=== PATIENT | female | born 2000 | race American Indian/Alaskan Native ===

== ENCOUNTER 2020-06-29 10:32 | Emergency (ER) | payer SELFPAY ==
[2020-06-29 11:09] VITALS: BP 113/65
--- NOTE | 2020-06-29 12:31 | Emergency Department Report ---
ED Extremity Problem HPI - General Chief complaint: Extremity Injury, Lower Stated complaint: PAIN Time Seen by Provider: 06/29/20 12:27 Source: patient Mode of arrival: Wheelchair Limitations: No Limitations - History of Present Illness Initial comments: Patient is a 20-year-old female presents emergency room with complaints of left foot pain and swelling that began 2 days ago. She denies any fall or injury. She states that she recently started back to work. She has been ambulating at home but today is not ambulating secondary to pain. She denies any numbness or weakness. She denies ever injuring the past. No past medical history. No allergies to medications. Last menstrual cycle 06/12/2020. Severity scale (0 -10): 9 - Related Data Previous Rx's Medication Instructions Recorded Last Taken Type Ibuprofen [Motrin 600 MG tab] 600 mg PO Q8H PRN #14 tablet 06/29/20 Unknown Rx Allergies Allergy/AdvReac Type Severity Reaction Status Date / Time No Known Allergies Allergy Unverified 06/29/20 11:06 ED Review of Systems ROS: Stated complaint: PAIN Other details as noted in HPI Comment: All other systems reviewed and negative ED Past Medical Hx - Past Medical History Previous Medical History?: No - Surgical History Past Surgical History?: No - Medications Home Medications: Home Medications Medication Instructions Recorded Confirmed Last Taken Type Ibuprofen [Motrin 600 MG tab] 600 mg PO Q8H PRN #14 tablet 06/29/20 Unknown Rx ED Physical Exam - General Limitations: No Limitations General appearance: alert, in no apparent distress - Head Head exam: Present: atraumatic, normocephalic - Eye Eye exam: Present: normal appearance - ENT ENT exam: Present: mucous membranes moist - Respiratory Respiratory exam: Absent: respiratory distress, accessory muscle use - Extremities Exam Extremities exam: Present: other (ttp and mild edema present to the left dorsal foot inferior to the ankle, FROM of the LLE, no deformity, no skin changes, no erythema, no increased warmth, no calf ttp, no swelling up the leg, neurovascularly intact) - Neurological Exam Neurological exam: Present: alert, oriented X3 - Psychiatric Psychiatric exam: Present: normal affect, normal mood - Skin Skin exam: Present: warm, dry, intact ED Course Vital Signs 06/29/20 11:06 Temperature 98.8 F Pulse Rate 75 Respiratory 16 Rate Blood Pressure 113/65 [Right] O2 Sat by Pulse 100 Oximetry ED Medical Decision Making - Radiology Data Radiology results: report reviewed Ordering Physician: RODRI CONTRERAS Date of Service: 06/29/20 Procedure(s): XR foot 3+V LT Accession Number(s): [id number] cc: RODRI CONTRERAS Fluoro Time In Minutes: LEFT FOOT 3 VIEWS INDICATION / CLINICAL INFORMATION: left foot pain and swelling COMPARISON: None available. FINDINGS: BONES / JOINT(S): No acute fracture or subluxation. No significant arthritis. SOFT TISSUES: No significant abnormality. ADDITIONAL FINDINGS: None. Signer Name: Armin Pulido MD Signed: 06/29/2020 1:32 PM Workstation Name: [id number] Transcribed By: SS Dictated By: Armin Pulido MD Electronically Authenticated By: Armin Pulido MD Signed Date/Time: 06/29/20 3588 - Medical Decision Making Patient is a 20-year-old female presents emergency room with complaints of left foot pain and swelling that began 2 days ago. She denies any fall or injury. She states that she recently started back to work. She has been ambulating at home but today is not ambulating secondary to pain. She denies any numbness or weakness. She denies ever injuring the past. No past medical history. No allergies to medications. Last menstrual cycle 06/12/2020. vitals are normal. on exam:ttp and mild edema present to the left dorsal foot inferior to the ankle, FROM of the LLE, no deformity, no skin changes, no erythema, no increased warmth, no calf ttp, no swelling up the leg, neurovascularly intact. XR left foot:BONES / JOINT(S): No acute fracture or subluxation. No significant arthritis. SOFT TISSUES: No significant abnormality. ADDITIONAL FINDINGS: None. Discussed all results with patient and answered questions. Patient placed in Jagdish wrap and given crutches by nursing remain neurovascularly intact. She has no clinical signs of gout, septic joint, DVT. Symptoms could be related to beginning a new job and standing on her feet all day plus the shoes she wears. Advised patient to buy orthotics. Patient given prescription for ibuprofen. Advised patient Please use medication as prescribed as needed. Please do not wear Jagdish bandage too tightly and do not wear at night while sleeping. May use ice for 15 minutes at a time, rest, elevation of the leg. Follow-up with orthopedic doctor for reexamination. Return to emergency room for any new or worsening symptoms. - Differential Diagnosis Strain, sprain, fracture, dislocation, contusion, tendinitis, athritis Critical care attestation.: If time is entered above; I have spent that time in minutes in the direct care of this critically ill patient, excluding procedure time. ED Disposition Clinical Impression: Acute pain of left foot Disposition: TO HOME OR SELFCARE Is pt being admited?: No Does the pt Need Aspirin: No Condition: Stable Instructions: Foot Pain Additional Instructions: Please use medication as prescribed as needed. Please do not wear Jagdish bandage too tightly and do not wear at night while sleeping. May use ice for 15 minutes at a time, rest, elevation of the leg. Follow-up with orthopedic doctor for reexamination. Return to emergency room for any new or worsening symptoms. Prescriptions: Ibuprofen [Motrin 600 MG tab] 600 mg PO Q8H PRN #14 tablet PRN Reason: Pain Referrals: PRIMARY CAREMD [Primary Care Provider] - 2-3 Days GISELA SANTOS MD [Staff Physician] - 2-3 Days [facility] [Provider Group] - 2-3 Days Forms: Work/School Release Form(ED) Time of Disposition: 14:23 Print Language: MALIAN
--- NOTE | 2020-06-29 13:36 | XRay Report ---
LEFT FOOT 3 VIEWS INDICATION / CLINICAL INFORMATION: left foot pain and swelling COMPARISON: None available. FINDINGS: BONES / JOINT(S): No acute fracture or subluxation. No significant arthritis. SOFT TISSUES: No significant abnormality. ADDITIONAL FINDINGS: None. Signer Name: Armin Pulido MD Signed: 06/29/2020 1:32 PM Workstation Name: [id number]
== END 2020-06-29 14:53 | disposition home or self-care (01) ==
LOC: ED 10:32
DX: M79.672 Pain in left foot (principal); Z79.899 Other long term (current) drug therapy

== ENCOUNTER 2020-11-16 11:07 | Observation (INO) | payer OTHER ==
[2020-11-16] MEDS ORDERED: SODIUM CHLORIDE 0.9% 1000 ML 1,000 ML IV ONE (12:14)
[2020-11-16] MEDS ORDERED: HYDROcodone/ACETAMINOPHEN 5-325 MG TAB PO ONE (12:15)
--- NOTE | 2020-11-16 12:18 | Emergency Department Report ---
ED Abdominal Pain HPI - General Chief Complaint: Pain General Stated Complaint: RIGHT SIDE PAIN UNDER RIBS Time Seen by Provider: 11/16/20 12:14 Source: patient Mode of arrival: Ambulatory Limitations: No Limitations - History of Present Illness Initial Comments: 20-year-old female with no significant past history presents to the ER today with complaints of right-sided abdominal/right-sided flank, right lower chest pain. Patient states that about 1 week ago she started with diffuse abdominal cramping but more so in lower abdomen. She states that she thought that the pain was related to her menstrual cycle about 2, on, but 2 days ago with pain localized in the right side of her abdomen right flank and right lower chest area. She states that it has been constant and getting worse. She states it radiates into her back, seems to be worse when she stands or sits and when she takes a deep breath. She denies any cough or URI symptoms. She denies any nausea or vomiting. She denies any bowel changes. She denies any UTI symptoms, abnormal vaginal discharge. She states that she is still currently on her menstrual cycle which is unusual because typically last 4 days. She is not on any control. He does have a history of tobacco use but otherwise denies any other significant past history and she denies any surgical history. MD Complaint: abdominal pain, flank pain -: week(s) (1) - Related Data Home Medications Medication Instructions Recorded Confirmed Last Taken No Known Home Medications [No 11/16/20 11/16/20 Unknown Reported Home Medications] Allergies Allergy/AdvReac Type Severity Reaction Status Date / Time No Known Allergies Allergy Verified 11/16/20 11:37 ED Review of Systems ROS: Stated complaint: RIGHT SIDE PAIN UNDER RIBS Other details as noted in HPI Comment: All other systems reviewed and negative Constitutional: chills. denies: diaphoresis, fever, malaise, weakness ENT: denies: ear pain, throat pain, dental pain, hearing loss, epistaxis, congestion Respiratory: other (Pain with deep breath). denies: cough, shortness of breath, wheezing Cardiovascular: chest pain (Right lower lateral/lower anterior chest area). denies: palpitations, dyspnea on exertion, orthopnea, edema, syncope, paroxysmal nocturnal dyspnea Endocrine: no symptoms reported Gastrointestinal: abdominal pain. denies: nausea, vomiting, diarrhea, constipation, hematemesis, melena, hematochezia Genitourinary: abnormal menses (Longer than normal). denies: urgency, dysuria, frequency, hematuria, discharge, dyspareunia Musculoskeletal: back pain. denies: joint swelling, arthralgia, myalgia Skin: denies: rash, lesions Neurological: denies: headache, weakness, numbness, paresthesias, confusion, abnormal gait, vertigo Psychiatric: denies: anxiety, depression, auditory hallucinations, visual hallucinations, homicidal thoughts, suicidal thoughts Hematological/Lymphatic: denies: easy bleeding, easy bruising, swollen glands ED Past Medical Hx - Past Medical History Previous Medical History?: No - Surgical History Past Surgical History?: No - Social History Smoking Status: Never Smoker Substance Use Type: Marijuana - Medications Home Medications: Home Medications Medication Instructions Recorded Confirmed Last Taken Type No Known Home Medications [No 11/16/20 11/16/20 Unknown History Reported Home Medications] ED Physical Exam - General Limitations: No Limitations General appearance: alert, in no apparent distress, cachectic - Head Head exam: Present: atraumatic, normocephalic, normal inspection - Eye Eye exam: Present: normal appearance, PERRL, EOMI Pupils: Present: normal accommodation - ENT ENT exam: Present: normal exam, mucous membranes moist - Neck Neck exam: Present: normal inspection, full ROM. Absent: meningismus - Respiratory Respiratory exam: Present: normal lung sounds bilaterally. Absent: respiratory distress, wheezes, chest wall tenderness - Cardiovascular Cardiovascular Exam: Present: regular rate, normal rhythm, normal heart sounds - GI/Abdominal GI/Abdominal exam: Present: soft, tenderness (Right upper quadrant, right lower quadrant and suprapubic tenderness with some mild guarding but no rebound, rigidity or abdominal distention noted) - External exam: Present: normal external exam Speculum exam: Present: vaginal bleeding (small amt of blood in vag vault ). Absent: erythema, vaginal discharge, cervical discharge, foreign body Bi-manual exam: Absent: cervical motion tendernes, adnexal tenderness, adnexal mass - Extremities Exam Extremities exam: Present: normal inspection - Back Exam Back exam: Present: normal inspection, full ROM, CVA tenderness (R) - Neurological Exam Neurological exam: Present: alert, oriented X3, CN II-XII intact, normal gait - Psychiatric Psychiatric exam: Present: normal affect, normal mood - Skin Skin exam: Present: intact ED Course Vital Signs 11/16/20 11/16/20 11:33 17:27 Temperature 101.2 F H 99.2 F Pulse Rate 92 H 88 Respiratory 20 20 Rate Blood Pressure 115/65 Blood Pressure 118/64 [Left] O2 Sat by Pulse 100 100 Oximetry ED Medical Decision Making - Lab Data Result diagrams: 11/16/20 12:22 11/16/20 12:22 - Radiology Data Radiology results: report reviewed Patient: ISHA JUSTIN MR#: [id number] : 2000 Acct:[id number] Age/Sex: 20 / F ADM Date: 11/16/20 Loc: ED Attending Dr: Ordering Physician: MONY RIOS Date of Service: 11/16/20 Procedure(s): XR chest routine 2V Accession Number(s): [id number] cc: MONY RIOS Fluoro Time In Minutes: CHEST 2 VIEWS INDICATION / CLINICAL INFORMATION: right lower chest pain/fever. COMPARISON: None available. FINDINGS: SUPPORT DEVICES: None. HEART / MEDIASTINUM: No significant abnormality. LUNGS / PLEURA: No significant pulmonary or pleural abnormality. No pneumothorax. ADDITIONAL FINDINGS: No significant additional findings. IMPRESSION: 1. No acute findings. Signer Name: Armin Pulido MD Signed: 11/16/2020 1:37 PM Workstation Name: [id number] Transcribed By: Dictated By: Armin Pulido MD Electronically Authenticated By: Armin Pulido MD Signed Date/Time: 11/16/201336 DD/ 36 TD/TT: Patient: ISHA JUSTIN MR#: [id number] : 2000 Acct:[id number] Age/Sex: 20 / F ADM Date: 11/16/20 Loc: ED Attending Dr: Ordering Physician: MONY RIOS Date of Service: 11/16/20 Procedure(s): CT abdomen pelvis w con Accession Number(s): [id number] cc: MONY RIOS CT ABDOMEN AND PELVIS WITH CONTRAST HISTORY: Right-sided abdominal pain/flank pain COMPARISON: None. TECHNIQUE: Axial CT images were obtained through the abdomen and pelvis after 100 cc of IV contrast. Sagittal and coronal reformatted images. All CT scans at this location are performed using CT dose reduction for ALARA by means of automated exposure control. FINDINGS: CT ABDOMEN: Lung Bases: Clear. Liver: No significant abnormality. Biliary: No significant abnormality. Spleen: No significant abnormality. Unenlarged. Pancreas: No significant abnormality. Adrenals: No significant abnormality. Kidneys: No significant abnormality. Lymphatics: No lymphadenopathy. Vasculature: No significant abnormality. Bowel/Peritoneum: No evidence for bowel obstruction or focal inflammation. Trace perihepatic ascites is identified of uncertain etiology. No free air or fluid collection. The appendix is not confidently identified secondary to lack of oral contrast and mesenteric fat. No obvious inflammatory changes in the right lower quadrant. CT PELVIS: : No significant abnormality. Osseous Structures: No significant abnormality. Additional Findings: None IMPRESSION: Trace perihepatic ascites of uncertain etiology. Nonvisualization of the appendix although no secondary findings of acute appendicitis are appreciated. Otherwise unremarkable CT of the abdomen and pelvis. Signer Name: Mandeep He Jr, MD Signed: 11/16/2020 4:22 PM Workstation Name: [id number] Transcribed By: TTR Dictated By: MANDEEP HE JR, MD Electronically Authenticated By: MANDEEP HE JR, MD Signed Date/Time: 11/16/201621 DD/ 161 TD/TT: - Medical Decision Making 1729: Patient states that her pain was better after initial pain medicines given but she states coming back. Repeat abdominal exam shows tenderness to palpation in the right lower quadrant as well as mildly in the right upper quadrant. Labs and CT reviewed --patient has a normal white count, hemoglobin is 8.1 but she admits to history of heavy menstrual cycles, her LFTs are normal as well as normal renal functions and normal electrolytes; her UA suggest questionable UTI, wet prep shows BV but otherwise unremarkable. CT shows trace perihepatic ascites of uncertain etiology -states she only drinks occasionally, and she denies Tylenol abuse. Labs and CT report and the case discussed with Dr. Ochoa - Given febrile state, and CT cannot definitely identify the appendix he recommend discussing case with general surgeon for admission for observation and serial abdominal exam. 1736: Discussed with Dr. Barrett, he agrees with plan and will consult on patient during stay. Recommend IV antibiotics and n.p.o. 1738: Discussed case with Dr Grimm, hospitalist, he has accepted admission. Critical care attestation.: If time is entered above; I have spent that time in minutes in the direct care of this critically ill patient, excluding procedure time. ED Disposition Clinical Impression: Abdominal pain, Abnormal CT of the abdomen, BV (bacterial vaginosis) Disposition: OP ADMIT IP TO THIS HOSP Is pt being admited?: Yes Condition: Stable
[2020-11-16 12:42] LABS: Basophils % (Auto) 0.2 % (0.0-1.8); Hematocrit 25.7 % (30.3-42.9); Hemoglobin 8.1 gm/dl (10.1-14.3); Lymphocytes # (Auto) 0.9 K/mm3 (1.2-5.4); Lymphocytes % (Auto) 13.4 % (13.4-35.0); Mean Corpuscular HGB Conc 32 % (30-34); Monocytes # (Auto) 0.7 K/mm3 (0.0-0.8); Monocytes % (Auto) 10.6 % (0.0-7.3); Platelet Count 221 K/mm3 (140-440); Red Blood Count 3.79 M/mm3 (3.65-5.03); Red Cell Distribution Width 17.7 % (13.2-15.2)
[2020-11-16 13:15] LABS: Mean Corpuscular Volume 68 fl (79-97)
[2020-11-16 13:34] LABS: Bilirubin,Urine NEG (Negative); Blood,Urine LG (Negative); Color,Urine Amber (Yellow); Mucus,Urine 3+ /HPF
--- NOTE | 2020-11-16 13:42 | XRay Report ---
CHEST 2 VIEWS INDICATION / CLINICAL INFORMATION: right lower chest pain/fever. COMPARISON: None available. FINDINGS: SUPPORT DEVICES: None. HEART / MEDIASTINUM: No significant abnormality. LUNGS / PLEURA: No significant pulmonary or pleural abnormality. No pneumothorax. ADDITIONAL FINDINGS: No significant additional findings. IMPRESSION: 1. No acute findings. Signer Name: Armin Pulido MD Signed: 11/16/2020 1:37 PM Workstation Name: [id number]
[2020-11-16 14:50] LABS: Alanine Aminotransferase 5 units/L (7-56); Albumin 3.9 g/dL (3.9-5); Blood Urea Nitrogen 8 mg/dL (7-17); Calcium 8.8 mg/dL (8.4-10.2); Hemolysis Index 0
[2020-11-16 15:01] LABS: BUN/Creatinine Ratio 13; Bilirubin,Direct < 0.2 mg/dL (0-0.2)
--- NOTE | 2020-11-16 16:26 | Cat Scan Report ---
CT ABDOMEN AND PELVIS WITH CONTRAST HISTORY: Right-sided abdominal pain/flank pain COMPARISON: None. TECHNIQUE: Axial CT images were obtained through the abdomen and pelvis after 100 cc of IV contrast. Sagittal and coronal reformatted images. All CT scans at this location are performed using CT dose re duction for ALARA by means of automated exposure control. FINDINGS: CT ABDOMEN: Lung Bases: Clear. Liver: No significant abnormality. Biliary: No significant abnormality. Spleen: No significant abnormality. Unenlarged. Pancreas: No significant abnormality. Adrenals: No significant abnormality. Kidneys: No significant abnormality. Lymphatics: No lymphadenopathy. Vasculature: No significant abnormality. Bowel/Peritoneum: No evidence for bowel obstruction or focal inflammation. Trace perihepatic ascites is identified of uncertain etiology. No free air or fluid collection. The appendix is not confidently identified secondary to lack of oral contrast and mesenteric fat. No obvious inflammatory changes in the right lower quadrant. CT PELVIS: : No significant abnormality. Osseous Structures: No significant abnormality. Additional Findings: None IMPRESSION: Trace perihepatic ascites of uncertain etiology. Nonvisualization of the appendix although no secondary findings of acute appendicitis are appreciated . Otherwise unremarkable CT of the abdomen and pelvis. Signer Name: Mandeep He Jr, MD Signed: 11/16/2020 4:22 PM Workstation Name: [id number]
[2020-11-16] MEDS ORDERED: PIPERACILLIN/TAZOBACTAM 3.375 3.375 GM/50 ML BAG IV ONE (17:34)
[2020-11-16] MEDS ORDERED: ONDANSETRON 4 MG/2 ML INJ IV PRN ×2 (17:40→23:52)
[2020-11-16] MEDS ORDERED: MORPHINE 2 MG/1 ML INJ IV PRN (23:52)
[2020-11-16] MEDS ORDERED: METOCLOPRAMIDE 10 MG/2 ML INJ IV PRN (23:52)
[2020-11-16] MEDS ORDERED: ACETAMINOPHEN 325 MG TAB PO PRN (23:52)
[2020-11-16] MEDS ORDERED: HYDROmorphone 1 MG/1 ML INJ IV PRN (23:52)
[2020-11-17] MEDS: D5W/0.9% NACL 1,000 ML IV SCH ×2 (00:22→16:02)
[2020-11-17] MEDS: HEPARIN 5,000 UNIT/1 ML VIAL SUB-Q SCH ×3 (00:23→22:54)
[2020-11-17] MEDS ORDERED: PIPERACILLIN/TAZOBACTAM 3.375 3.375 GM/50 ML BAG IV SCH (02:00)
--- NOTE | 2020-11-17 07:19 | History and Physical Report ---
History of Present Illness Date of examination: 11/16/20 Date of admission: 11/16/20 17:40 Chief complaint: Right lower quadrant pain for 1 day History of present illness: 20-year-old female with no significant past medical history comes in for right lower quadrant pain associated with nausea for the last 24 hours. Pain is about 10 on a scale of 1-10. Intermittent cramping in nature. Patient states that the pain radiates to the back. No dysuria. No abnormal vaginal discharge. Patient has history of tobacco use. Patient being admitted for high possibility of acute appendicitis. - Past Medical History Previous Medical History?: No - Surgical History Past Surgical History?: No - Social History Smoking Status: Never Smoker Substance Use Type: Marijuana - Medications Home Medications: Home Medications Medication Instructions Recorded Confirmed Last Taken Type No Known Home Medications [No 11/16/20 11/16/20 Unknown History Reported Home Medications] Review of Systems ROS: Stated complaint: RIGHT SIDE PAIN UNDER RIBS Other details as noted in HPI Comment: All other systems reviewed and negative Constitutional: chills. denies: diaphoresis, fever, malaise, weakness ENT: denies: ear pain, throat pain, dental pain, hearing loss, epistaxis, congestion Respiratory: other (Pain with deep breath). denies: cough, shortness of breath, wheezing Cardiovascular: chest pain (Right lower lateral/lower anterior chest area). denies: palpitations, dyspnea on exertion, orthopnea, edema, syncope, paroxysmal nocturnal dyspnea Endocrine: no symptoms reported Gastrointestinal: abdominal pain. denies: nausea, vomiting, diarrhea, constipat ion, hematemesis, melena, hematochezia Genitourinary: abnormal menses (Longer than normal). denies: urgency, dysuria, frequency, hematuria, discharge, dyspareunia Musculoskeletal: back pain. denies: joint swelling, arthralgia, myalgia Skin: denies: rash, lesions Neurological: denies: headache, weakness, numbness, paresthesias, confusion, abnormal gait, vertigo Psychiatric: denies: anxiety, depression, auditory hallucinations, visual hallucinations, homicidal thoughts, suicidal thoughts Hematological/Lymphatic: denies: easy bleeding, easy bruising, swollen glands Medications and Allergies Allergies Allergy/AdvReac Type Severity Reaction Status Date / Time No Known Allergies Allergy Verified 11/16/20 11:37 Home Medications Medication Instructions Recorded Confirmed Last Taken Type No Known Home Medications [No 11/16/20 11/16/20 Unknown History Reported Home Medications] Active Meds: Active Medications Acetaminophen (Acetaminophen 325 Mg Tab) 650 mg PO Q4H PRN PRN Reason: Pain MILD(1-3)/Fever >100.5/SEQUEIRA Famotidine (Famotidine 20 Mg/2 Ml Inj) 20 mg IV BID [facility] Heparin Sodium (Porcine) (Heparin 5,000 Unit/1 Ml Vial) 5,000 unit SUB-Q Q12HR [facility] Last Admin: 11/17/20 00:23 Dose: 5,000 unit Documented by: Hydromorphone HCl (Hydromorphone 1 Mg/1 Ml Inj) 0.5 mg IV Q3H PRN PRN Reason: Pain , Severe (7-10) Dextrose/Sodium Chloride (D5ns) 1,000 mls @ 75 mls/hr IV DIRECT [facility] Last Admin: 11/17/20 00:22 Dose: 75 mls/hr Documented by: Piperacillin Sod/Tazobactam Sod (Zosyn/Ns 3.375gm/50ml) 3.375 gm in 50 mls @ 100 mls/hr IV Q8H [facility]; Protocol Last Admin: 11/17/20 01:23 Dose: 100 mls/hr Documented by: Metoclopramide HCl (Metoclopramide 10 Mg/2 Ml Inj) 10 mg IV Q6H PRN PRN Reason: Nausea And Vomiting Morphine Sulfate (Morphine 2 Mg/1 Ml Inj) 2 mg IV Q4H PRN PRN Reason: Pain, Moderate (4-6) Last Admin: 11/17/20 01:54 Dose: 2 mg Documented by: Ondansetron HCl (Ondansetron 4 Mg/2 Ml Inj) 4 mg IV Q3H PRN PRN Reason: Nausea And Vomiting Sodium Chloride (Sodium Chloride 0.9% 10 Ml Flush Syringe) 10 ml IV BID [facility] Last Admin: 11/16/20 23:12 Dose: 10 ml Documented by: Sodium Chloride (Sodium Chloride 0.9% 10 Ml Flush Syringe) 10 ml IV PRN PRN PRN Reason: LINE FLUSH Sodium Chloride (Sodium Chloride 0.9% 10 Ml Flush Syringe) 10 ml IV BID [facility] Sodium Chloride (Sodium Chloride 0.9% 10 Ml Flush Syringe) 10 ml IV PRN PRN PRN Reason: LINE FLUSH Exam - Constitutional Vitals: Temp Pulse Resp BP Pulse Ox 98.6 F 87 16 96/52 98 11/17/20 03:52 11/17/20 03:52 11/17/20 03:52 11/17/20 03:52 11/17/20 03:52 General appearance: Present: mild distress, well-nourished - EENT Eyes: Present: PERRL ENT: hearing intact, clear oral mucosa - Neck Neck: Present: supple, normal ROM - Respiratory Respiratory effort: normal Respiratory: bilateral: CTA - Cardiovascular Heart rate: 78 Rhythm: regular Heart Sounds: Present: S1 & S2. Absent: rub, click - Extremities Extremities: pulses symmetrical, No edema Peripheral Pulses: within normal limits - Abdominal General gastrointestinal: Present: soft, tender, non-distended, normal bowel sounds Localized gastrointestinal: tender: RLQ, guarding: RLQ Female genitourinary: Present: normal - Rectal Rectal Exam: deferred - Integumentary Integumentary: Present: clear, warm, dry - Musculoskeletal Musculoskeletal: gait normal, strength equal bilaterally - Psychiatric Psychiatric: appropriate mood/affect, intact judgment & insight - Neurologic Neurologic: CNII-XII intact, moves all extremities Results - Labs CBC & Chem 7: 11/16/20 12:22 11/16/20 12:22 Labs: Laboratory Last Values WBC 6.9 K/mm3 (4.5-11.0) 11/16/20 12:22 RBC 3.79 M/mm3 (3.65-5.03) 11/16/20 12:22 Hgb 8.1 gm/dl (10.1-14.3) L 11/16/20 12:22 Hct 25.7 % (30.3-42.9) L 11/16/20 12:22 MCV 68 fl (79-97) L 11/16/20 12:22 MCH 22 pg (28-32) L 11/16/20 12:22 MCHC 32 % (30-34) 11/16/20 12:22 RDW 17.7 % (13.2-15.2) H 11/16/20 12:22 Plt Count 221 K/mm3 (140-440) 11/16/20 12:22 Lymph % (Auto) 13.4 % (13.4-35.0) 11/16/20 12:22 [place] % (Auto) 10.6 % (0.0-7.3) H 11/16/20 12:22 Eos % (Auto) 0.0 % (0.0-4.3) 11/16/20 12:22 Baso % (Auto) 0.2 % (0.0-1.8) 11/16/20 12:22 Lymph # (Auto) 0.9 K/mm3 (1.2-5.4) L 11/16/20 12:22 [place] # (Auto) 0.7 K/mm3 (0.0-0.8) 11/16/20 12:22 Eos # (Auto) 0.0 K/mm3 (0.0-0.4) 11/16/20 12:22 Baso # (Auto) 0.0 K/mm3 (0.0-0.1) 11/16/20 12:22 Seg Neutrophils % 75.8 % (40.0-70.0) H 11/16/20 12:22 Seg Neutrophils # 5.2 K/mm3 (1.8-7.7) 11/16/20 12:22 Sodium 136 mmol/L (137-145) L 11/16/20 12:22 Potassium 3.4 mmol/L (3.6-5.0) L 11/16/20 12:22 Chloride 99.0 mmol/L (98-107) 11/16/20 12:22 Carbon Dioxide 25 mmol/L (22-30) 11/16/20 12:22 Anion Gap 15 mmol/L 11/16/20 12:22 BUN 8 mg/dL (7-17) 11/16/20 12:22 Creatinine 0.6 mg/dL (0.6-1.2) 11/16/20 12:22 Estimated GFR > 60 ml/min 11/16/20 12:22 BUN/Creatinine Ratio 13 % 11/16/20 12:22 Glucose 97 mg/dL (65-100) 11/16/20 12:22 Lactic Acid 0.70 mmol/L (0.7-2.0) 11/16/20 12:22 Calcium 8.8 mg/dL (8.4-10.2) 11/16/20 12:22 Total Bilirubin 0.40 mg/dL (0.1-1.2) 11/16/20 12:22 Direct Bilirubin < 0.2 mg/dL (0-0.2) 11/16/20 12:22 Indirect Bilirubin 0.2 mg/dL 11/16/20 12:22 AST 14 units/L (5-40) 11/16/20 12:22 ALT 5 units/L (7-56) L 11/16/20 12:22 Alkaline Phosphatase 55 units/L (35-129) 11/16/20 12:22 Total Protein 7.6 g/dL (6.3-8.2) 11/16/20 12:22 Albumin 3.9 g/dL (3.9-5) 11/16/20 12:22 Albumin/Globulin Ratio 1.1 % 11/16/20 12: Lipase 8 units/L (13-60) L 11/16/20 12:22 HCG, Qual Negative (Negative) 11/16/20 12:26 Urine Color Britany (Yellow) 11/16/20 12:55 Urine Turbidity Slightly-cloudy (Clear) 11/16/20 12:55 Urine pH 5.0 (5.0-7.0) 11/16/20 12:55 Ur Specific [place] 1.030 (1.003-1.030) 11/16/20 12:55 Urine Protein 100 mg/dl mg/dL (Negative) 11/16/20 12:55 Urine Glucose (UA) Neg mg/dL (Negative) 11/16/20 12:55 Urine Ketones Tr mg/dL (Negative) 11/16/20 12:55 Urine Blood Lg (Negative) 11/16/20 12:55 Urine Nitrite Neg (Negative) 11/16/20 12:55 Urine Bilirubin Neg (Negative) 11/16/20 12:55 Urine Urobilinogen 4.0 mg/dL (<2.0) 11/16/20 12:55 Ur Leukocyte Esterase Sm (Negative) 11/16/20 12:55 Urine WBC (Auto) 18.0 /HPF (0.0-6.0) H 11/16/20 12:55 Urine RBC (Auto) 108.0 /HPF (0.0-6.0) 11/16/20 12:55 U Epithel Cells (Auto) 6.0 /HPF (0-13.0) 11/16/20 12:55 Urine Mucus 3+ /HPF 11/16/20 12:55 Short CBC 11/16/20 Range/Units 12:22 WBC 6.9 (4.5-11.0) K/mm3 Hgb 8.1 L (10.1-14.3) gm/dl Hct 25.7 L (30.3-42.9) % Plt Count 221 (140-440) K/mm3 BMP 11/16/20 12:22 Sodium 136 L Potassium 3.4 L Chloride 99.0 Carbon Dioxide 25 BUN 8 Creatinine 0.6 Glucose 97 Calcium 8.8 Liver Function 11/16/20 Range/Units 12:22 Total Bilirubin 0.40 (0.1-1.2) mg/dL Direct Bilirubin < 0.2 (0-0.2) mg/dL AST 14 (5-40) units/L ALT 5 L (7-56) units/L Alkaline Phosphatase 55 (35-129) units/L Albumin 3.9 (3.9-5) g/dL Urine 11/16/20 Range/Units 12:55 Urine Color [place] (Yellow) Urine pH 5.0 (5.0-7.0) Ur Specific [place] 1.030 (1.003-1.030) Urine Protein 100 mg/dl (Negative) mg/dL Urine Glucose (UA) Neg (Negative) mg/dL Microbiology: Microbiology 11/16/20 12:22 Peripheral/Venous Blood Culture - Preliminary Culture in Progress 11/16/20 12:22 Peripheral/Venous Blood Culture - Preliminary Culture in Progress 11/16/20 12:50 Vaginal Wet Prep - Final - Imaging and Cardiology CT scan - abdomen: report reviewed Imaging and Cardiology: CT abdomen/pelvis Trace perihepatic ascites of uncertain etiology Nonvisualization of the appendix although no secondary findings of acute appendicitis will be appreciated observed unremarkable CT of the abdomen and pelvis. Henry/IV: Voiding Method Toilet Assessment and Plan Advance Directives: Yes (Full code) VTE prophylaxis?: Chemical Plan of care discussed with patient/family: Yes - Patient Problems (1) Acute appendicitis Current Visit: Yes Status: Acute Qualifiers: Acute appendicitis type: with localized peritonitis Plan to address problem: Highly likely even though the CT of the abdomen is not certain Clinically right lower quadrant tenderness and guarding present. Patient started on IV Zosyn. Surgery consulted. We will admit for 23-hour observation. Will defer the surgical opinion to Dr. Barrett. IV fluids. (2) Anemia Current Visit: Yes Status: Chronic Qualifiers: Anemia type: iron deficiency Plan to address problem: Anemia work-up including iron studies and B12 and folic acid Probably secondary to menstrual. (3) Hyponatremia Current Visit: Yes Status: Acute Plan to address problem: Mild on IV fluids normal saline (4) Hypokalemia Current Visit: Yes Status: Acute Plan to address problem: Supplemented (5) DVT prophylaxis Current Visit: Yes Status: Acute Plan to address problem: On heparin and GI prophylaxis
--- NOTE | 2020-11-17 09:17 | Progress Note ---
Assessment and Plan Assessment and plan: Possible acute appendicitis Clear liquid diet per surgery IV antibiotics, supportive care Surgery evaluation noted Closely monitor Possible UTI ; empiric antibiotics, follow cultures and sensitivities Continue IV and oral fluids ID consult if needed anemia/iron deficiency anemia Anemia work-up including iron studies and B12 and folic acid Probably secondary to menstrual. Closely monitor H&H transfuse as needed Iron supplements Hyponatremia improved Replacement therapy with IV normal saline Closely monitor electrolytes mild on IV fluids normal saline Severe malnutrition BMI 15.7 nutrition supplements, nutrition consult hypokalemia Supplemented Closely monitor electrolytes and correct as needed DVT prophylaxis On heparin and GI prophylaxis We will closely monitor the patient and adjust management as needed Follow surgery evaluation recommendations 11/17/2020; abdominal pain possible appendicitis Surgery evaluated, unlikely UTI, empiric antibiotics, follow cultures Closely monitor overnight And discharge home if stable and cleared by surgery History Interval history: I seen and examined the patient at the bedside this morning Patient's chart and medications reviewed Patient continues to have vague abdominal pain Surgery evaluation recommendations noted Patient looks emaciated and cachectic And malnourished Vital signs noted Hospitalist Physical - Constitutional Vitals: Temp Pulse Resp BP Pulse Ox 98.6 F 87 16 96/52 98 11/17/20 03:52 11/17/20 03:52 11/17/20 03:52 11/17/20 03:52 11/17/20 03:52 General appearance: Present: mild distress, well-nourished, disheveled, other (Malnourished) - EENT Eyes: Present: PERRL, EOM intact - Neck Neck: Present: supple, normal ROM - Respiratory Respiratory effort: normal Respiratory: bilateral: diminished, negative: rales, rhonchi, wheezing - Cardiovascular Rhythm: regular Heart Sounds: Present: S1 & S2 - Extremities Extremities: no ischemia, No edema - Abdominal General gastrointestinal: soft, tender (No guarding no rigidity), non-distended, normal bowel sounds - Integumentary Integumentary: Present: clear, warm - Psychiatric Psychiatric: appropriate mood/affect, cooperative - Neurologic Neurologic: CNII-XII intact, moves all extremities Results - Labs CBC & Chem 7: 11/17/20 07:51 11/17/20 07:51 Labs: Laboratory Last Values WBC 6.9 K/mm3 (4.5-11.0) 11/16/20 12:22 RBC 3.79 M/mm3 (3.65-5.03) 11/16/20 12:22 Hgb 8.1 gm/dl (10.1-14.3) L 11/16/20 12:22 Hct 25.7 % (30.3-42.9) L 11/16/20 12:22 MCV 68 fl (79-97) L 11/16/20 12:22 MCH 22 pg (28-32) L 11/16/20 12:22 MCHC 32 % (30-34) 11/16/20 12:22 RDW 17.7 % (13.2-15.2) H 11/16/20 12:22 Plt Count 221 K/mm3 (140-440) 11/16/20 12:22 Lymph % (Auto) 13.4 % (13.4-35.0) 11/16/20 12:22 [place] % (Auto) 10.6 % (0.0-7.3) H 11/16/20 12:22 Eos % (Auto) 0.0 % (0.0-4.3) 11/16/20 12:22 Baso % (Auto) 0.2 % (0.0-1.8) 11/16/20 12:22 Lymph # (Auto) 0.9 K/mm3 (1.2-5.4) L 11/16/20 12:22 [place] # (Auto) 0.7 K/mm3 (0.0-0.8) 11/16/20 12:22 Eos # (Auto) 0.0 K/mm3 (0.0-0.4) 11/16/20 12:22 Baso # (Auto) 0.0 K/mm3 (0.0-0.1) 11/16/20 12:22 Seg Neutrophils % 75.8 % (40.0-70.0) H 11/16/20 12:22 Seg Neutrophils # 5.2 K/mm3 (1.8-7.7) 11/16/20 12:22 Sodium 136 mmol/L (137-145) L 11/16/20 12:22 Potassium 3.4 mmol/L (3.6-5.0) L 11/16/20 12:22 Chloride 99.0 mmol/L (98-107) 11/16/20 12:22 Carbon Dioxide 25 mmol/L (22-30) 11/16/20 12:22 Anion Gap 15 mmol/L 11/16/20 12:22 BUN 8 mg/dL (7-17) 11/16/20 12:22 Creatinine 0.6 mg/dL (0.6-1.2) 11/16/20 12:22 Estimated GFR > 60 ml/min 11/16/20 12:22 BUN/Creatinine Ratio 13 % 11/16/20 12:22 Glucose 97 mg/dL (65-100) 11/16/20 12:22 Lactic Acid 0.70 mmol/L (0.7-2.0) 11/16/20 12:22 Calcium 8.8 mg/dL (8.4-10.2) 11/16/20 12:22 Total Bilirubin 0.40 mg/dL (0.1-1.2) 11/16/20 12:22 Direct Bilirubin < 0.2 mg/dL (0-0.2) 11/16/20 12:22 Indirect Bilirubin 0.2 mg/dL 11/16/20 12:22 AST 14 units/L (5-40) 11/16/20 12:22 ALT 5 units/L (7-56) L 11/16/20 12:22 Alkaline Phosphatase 55 units/L (35-129) 11/16/20 12:22 Total Protein 7.6 g/dL (6.3-8.2) 11/16/20 12:22 Albumin 3.9 g/dL (3.9-5) 11/16/20 12:22 Albumin/Globulin Ratio 1.1 % 11/16/20 12:22 Lipase 8 units/L (13-60) L 11/16/20 12:22 HCG, Qual Negative (Negative) 11/16/20 12:26 Urine Color [place] (Yellow) 11/16/20 12:55 Urine Turbidity Slightly-cloudy (Clear) 11/16/20 12:55 Urine pH 5.0 (5.0-7.0) 11/16/20 12:55 Ur Specific [place] 1.030 (1.003-1.030) 11/16/20 12:55 Urine Protein 100 mg/dl mg/dL (Negative) 11/16/20 12:55 Urine Glucose (UA) Neg mg/dL (Negative) 11/16/20 12:55 Urine Ketones Tr mg/dL (Negative) 11/16/20 12:55 Urine Blood Lg (Negative) 11/16/20 12:55 Urine Nitrite Neg (Negative) 11/16/20 12:55 Urine Bilirubin Neg (Negative) 11/16/20 12:55 Urine Urobilinogen 4.0 mg/dL (<2.0) 11/16/20 12:55 Ur Leukocyte Esterase Sm (Negative) 11/16/20 12:55 Urine WBC (Auto) 18.0 /HPF (0.0-6.0) H 11/16/20 12:55 Urine RBC (Auto) 108.0 /HPF (0.0-6.0) 11/16/20 12:55 U Epithel Cells (Auto) 6.0 /HPF (0-13.0) 11/16/20 12:55 Urine Mucus 3+ /HPF 11/16/20 12:55 Microbiology: Microbiology 11/16/20 12:22 Peripheral/Venous Blood Culture - Preliminary Culture in Progress 11/16/20 12:22 Peripheral/Venous Blood Culture - Preliminary Culture in Progress 11/16/20 12:50 Vaginal Wet Prep - Final Henry/IV: Voiding Method Toilet Active Medications - Current Medications Current Medications: Generic Name Dose Route Start Last Admin Trade Name Freq PRN Reason Stop Dose Admin Acetaminophen 650 mg 11/16/20 17:40 Acetaminophen 325 Mg Tab PO Q4H PRN Pain MILD(1-3)/Fever >100.5/SEQUEIRA Famotidine 20 mg 11/17/20 10:00 Famotidine 20 Mg/2 Ml Inj IV BID [facility] Heparin Sodium (Porcine) 5,000 unit 11/17/20 00:15 11/17/20 00:23 Heparin 5,000 Unit/1 Ml Vial SUB-Q 5,000 unit Q12HR [facility] Administration Hydromorphone HCl 0.5 mg 11/16/20 23:52 Hydromorphone 1 Mg/1 Ml Inj IV Q3H PRN Pain , Severe (7-10) Dextrose/Sodium Chloride 1,000 mls @ 75 mls/hr 11/16/20 23:45 11/17/20 00:22 D5ns IV 75 mls/hr DIRECT [facility] Administration Piperacillin Sod/Tazobactam Sod 4.5 gm in 100 mls @ 200 mls/hr 11/17/20 08:00 Zosyn/Ns 4.5gm/100ml IV Q8H [facility] Metoclopramide HCl 10 mg 11/16/20 23:52 Metoclopramide 10 Mg/2 Ml Inj IV Q6H PRN Nausea And Vomiting Morphine Sulfate 2 mg 11/16/20 23:52 11/17/20 01:54 Morphine 2 Mg/1 Ml Inj IV 2 mg Q4H PRN Administration Pain, Moderate (4-6) Ondansetron HCl 4 mg 11/16/20 23:52 Ondansetron 4 Mg/2 Ml Inj IV Q3H PRN Nausea And Vomiting Sodium Chloride 10 ml 11/16/20 22:00 11/16/20 23:12 Sodium Chloride 0.9% 10 Ml Flush Syringe IV 10 ml BID [facility] Administration Sodium Chloride 10 ml 11/16/20 17:40 Sodium Chloride 0.9% 10 Ml Flush Syringe IV PRN PRN LINE FLUSH Sodium Chloride 10 ml 11/17/20 10:00 Sodium Chloride 0.9% 10 Ml Flush Syringe IV BID [facility] Sodium Chloride 10 ml 11/16/20 23:52 Sodium Chloride 0.9% 10 Ml Flush Syringe IV PRN PRN LINE FLUSH
--- NOTE | 2020-11-17 09:28 | Consultation ---
History of Present Illness Consult date: 11/17/20 Reason for consult: abdominal pain - History of present illness History of present illness: 20 yo female with 24 hr h/o diffuse, episodic pain which is most tender in the lower RUQ. Pt states the pain is improved c/w yesterday. She denies associated nausea, vomiting or exacerbating factors. No urinary complaints. No FH of gal lbladder disease. She is . She is getting hungry. Medications and Allergies Allergies Allergy/AdvReac Type Severity Reaction Status Date / Time No Known Allergies Allergy Verified 11/16/20 11:37 Home Medications Medication Instructions Recorded Confirmed Last Taken Type No Known Home Medications [No 11/16/20 11/16/20 Unknown History Reported Home Medications] Active Meds: Active Medications Acetaminophen (Acetaminophen 325 Mg Tab) 650 mg PO Q4H PRN PRN Reason: Pain MILD(1-3)/Fever >100.5/SEQUEIRA Famotidine (Famotidine 20 Mg/2 Ml Inj) 20 mg IV BID [facility] Heparin Sodium (Porcine) (Heparin 5,000 Unit/1 Ml Vial) 5,000 unit SUB-Q Q12HR [facility] Last Admin: 11/17/20 00:23 Dose: 5,000 unit Documented by: Hydromorphone HCl (Hydromorphone 1 Mg/1 Ml Inj) 0.5 mg IV Q3H PRN PRN Reason: Pain , Severe (7-10) Dextrose/Sodium Chloride (D5ns) 1,000 mls @ 75 mls/hr IV DIRECT [facility] Last Admin: 11/17/20 00:22 Dose: 75 mls/hr Documented by: Piperacillin Sod/Tazobactam Sod (Zosyn/Ns 4.5gm/100ml) 4.5 gm in 100 mls @ 200 mls/hr IV Q8H [facility] Metoclopramide HCl (Metoclopramide 10 Mg/2 Ml Inj) 10 mg IV Q6H PRN PRN Reason: Nausea And Vomiting Morphine Sulfate (Morphine 2 Mg/1 Ml Inj) 2 mg IV Q4H PRN PRN Reason: Pain, Moderate (4-6) Last Admin: 11/17/20 01:54 Dose: 2 mg Documented by: Ondansetron HCl (Ondansetron 4 Mg/2 Ml Inj) 4 mg IV Q3H PRN PRN Reason: Nausea And Vomiting Sodium Chloride (Sodium Chloride 0.9% 10 Ml Flush Syringe) 10 ml IV BID [facility] Last Admin: 11/16/20 23:12 Dose: 10 ml Documented by: Sodium Chloride (Sodium Chloride 0.9% 10 Ml Flush Syringe) 10 ml IV PRN PRN PRN Reason: LINE FLUSH Sodium Chloride (Sodium Chloride 0.9% 10 Ml Flush Syringe) 10 ml IV BID [facility] Sodium Chloride (Sodium Chloride 0.9% 10 Ml Flush Syringe) 10 ml IV PRN PRN PRN Reason: LINE FLUSH Review of Systems All systems: negative (none) Exam Vital Signs Temp Pulse Resp BP Pulse Ox 101.2 F H 92 H 20 115/65 100 11/16/20 11:33 11/16/20 11:33 11/16/20 11:33 11/16/20 11:33 11/16/20 11:33 - General physical appearance Positive: well developed, well nourished, no distress - Eyes Positive: PERRL, normal occular movement - ENT Positive: normal pinna, normal nares, normal mucosa, no hearing loss, no congestion - Neck Positive: no masses, no bruits, trachea midline, no venous distension - Respiratory Positive: normal expansion, normal respiratory effort, clear to auscultation - Cardiovascular Rhythm: regular Heart Sounds: Present: S1 & S2. Absent: rub, click - Extremities Extremities: no ischemia, pulses symmetrical, No edema - Breasts Breasts: normal, no mass, no skin changes - Abdomen Abdomen: Present: soft, bowel sounds normal. Absent: tender, distended Hernia: none - Genitourinary Male Genitourinary: normal Female Genitourinary: normal - Integumentary no rash, no growths, no abnormal pigmentation - Neurologic Neurologic: alert and oriented to time, place and person, motor strength and sensation are grossly intact - Musculoskeletal normal gait, normal posture - Psychiatric Psychiatric: appropriate mood/affect, intact judgment & insight Results - Labs 11/16/20 12:22 11/16/20 12:22 Abnormal lab results 11/16/20 11/16/20 11/16/20 Range/Units 12:22 12:22 12:55 Hgb 8.1 L (10.1-14.3) gm/dl Hct 25.7 L (30.3-42.9) % MCV 68 L (79-97) fl MCH 22 L (28-32) pg RDW 17.7 H (13.2-15.2) % [place] % (Auto) 10.6 H (0.0-7.3) % Lymph # (Auto) 0.9 L (1.2-5.4) K/mm3 Seg Neutrophils % 75.8 H (40.0-70.0) % Sodium 136 L (137-145) mmol/L Potassium 3.4 L (3.6-5.0) mmol/L ALT 5 L (7-56) units/L Lipase 8 L (13-60) units/L Urine WBC (Auto) 18.0 H (0.0-6.0) /HPF Diabetes panel 11/16/20 Range/Units 12:22 Sodium 136 L (137-145) mmol/L Potassium 3.4 L (3.6-5.0) mmol/L Chloride 99.0 (98-107) mmol/L Carbon Dioxide 25 (22-30) mmol/L BUN 8 (7-17) mg/dL Creatinine 0.6 (0.6-1.2) mg/dL Glucose 97 (65-100) mg/dL Calcium 8.8 (8.4-10.2) mg/dL AST 14 (5-40) units/L ALT 5 L (7-56) units/L Alkaline Phosphatase 55 (35-129) units/L Total Protein 7.6 (6.3-8.2) g/dL Albumin 3.9 (3.9-5) g/dL Calcium panel 11/16/20 Range/Units 12:22 Calcium 8.8 (8.4-10.2) mg/dL Albumin 3.9 (3.9-5) g/dL Pituitary panel 11/16/20 Range/Units 12:22 Sodium 136 L (137-145) mmol/L Potassium 3.4 L (3.6-5.0) mmol/L Chloride 99.0 (98-107) mmol/L Carbon Dioxide 25 (22-30) mmol/L BUN 8 (7-17) mg/dL Creatinine 0.6 (0.6-1.2) mg/dL Glucose 97 (65-100) mg/dL Calcium 8.8 (8.4-10.2) mg/dL Adrenal panel 11/16/20 Range/Units 12:22 Sodium 136 L (137-145) mmol/L Potassium 3.4 L (3.6-5.0) mmol/L Chloride 99.0 (98-107) mmol/L Carbon Dioxide 25 (22-30) mmol/L BUN 8 (7-17) mg/dL Creatinine 0.6 (0.6-1.2) mg/dL Glucose 97 (65-100) mg/dL Calcium 8.8 (8.4-10.2) mg/dL Total Bilirubin 0.40 (0.1-1.2) mg/dL AST 14 (5-40) units/L ALT 5 L (7-56) units/L Alkaline Phosphatase 55 (35-129) units/L Total Protein 7.6 (6.3-8.2) g/dL Albumin 3.9 (3.9-5) g/dL Assessment and Plan - Patient Problems (1) Abdominal pain Current Visit: Yes Status: Acute Plan to address problem: 1) Abdominal pain is improving. 2) CLD 3) Check f/u CBC 4) Doubt surgical intervention will be required.
[2020-11-17 09:47] LABS: Basophils % (Auto) 0.4 % (0.0-1.8); Eosinophils % (Auto) 0.1 % (0.0-4.3); Hematocrit 23.5 % (30.3-42.9); Hemoglobin 7.3 gm/dl (10.1-14.3); Lymphocytes # (Auto) 1.2 K/mm3 (1.2-5.4); Lymphocytes % (Auto) 18.2 % (13.4-35.0); Mean Corpuscular HGB Conc 31 % (30-34); Monocytes # (Auto) 0.5 K/mm3 (0.0-0.8); Monocytes % (Auto) 8.3 % (0.0-7.3); Platelet Count 226 K/mm3 (140-440); Red Blood Count 3.47 M/mm3 (3.65-5.03); Red Cell Distribution Width 17.8 % (13.2-15.2)
[2020-11-17 09:50] LABS: Mean Corpuscular Volume 68 fl (79-97)
[2020-11-17 10:06] LABS: Albumin 3.1 g/dL (3.9-5); Blood Urea Nitrogen 6 mg/dL (7-17); Calcium 7.8 mg/dL (8.4-10.2); Hemolysis Index 0
[2020-11-17] MEDS: PIPERACIL/TAZOBACTA 4.5/NS 100 4.5 GM/100 ML VIAL IV SCH ×3 (10:12→23:05)
[2020-11-17] MEDS: FAMOTIDINE 20 MG/2 ML INJ IV SCH ×2 (10:16→22:54)
[2020-11-17 10:17] LABS: % Iron Saturation 4.76 %
[2020-11-17 10:19] LABS: Alanine Aminotransferase < 5 units/L (7-56); BUN/Creatinine Ratio 12
[2020-11-17] MEDS: ACETAMINOPHEN 325 MG TAB PO PRN ×3 (10:21→22:54)
[2020-11-17] MEDS ORDERED: POTASSIUM CHLORIDE ER 20 MEQ TAB PO SCH (17:00)
[2020-11-17] MEDS: FERROUS SULFATE 325 MG TAB PO SCH (22:54)
[2020-11-18] MEDS: D5W/0.9% NACL 1,000 ML IV SCH (05:11)
[2020-11-18] MEDS: PIPERACIL/TAZOBACTA 4.5/NS 100 4.5 GM/100 ML VIAL IV SCH ×3 (08:24→23:16)
[2020-11-18] MEDS: FAMOTIDINE 20 MG/2 ML INJ IV SCH ×2 (09:27→22:07)
[2020-11-18] MEDS: FERROUS SULFATE 325 MG TAB PO SCH ×2 (09:27→22:07)
[2020-11-18] MEDS: HEPARIN 5,000 UNIT/1 ML VIAL SUB-Q SCH ×2 (09:27→22:07)
--- NOTE | 2020-11-18 13:10 | Progress Note ---
Assessment and Plan Assessment and plan: Assessment and Plan Assessment and plan: Possible acute appendicitis Clear liquid diet per surgery IV antibiotics, supportive care Surgery evaluation noted Closely monitor Possible UTI ; empiric antibiotics, follow cultures and sensitivities Continue IV and oral fluids ID consult if needed anemia/iron deficiency anemia Anemia work-up including iron studies and B12 and folic acid Probably secondary to menstrual. Closely monitor H&H transfuse as needed Iron supplements Hyponatremia improved Replacement therapy with IV normal saline Closely monitor electrolytes mild on IV fluids normal saline Severe malnutrition BMI 15.7 nutrition supplements, nutrition consult hypokalemia Supplemented Closely monitor electrolytes and correct as needed DVT prophylaxis On heparin and GI prophylaxis We will closely monitor the patient and adjust management as needed Follow surgery evaluation recommendations 11/17/2020; abdominal pain possible appendicitis Surgery evaluated, unlikely UTI, empiric antibiotics, follow cultures Closely monitor overnight And discharge home if stable and cleared by surgery 11/18/20 Patient is still complaining of right upper quadrant/abdominal pains 10 Patient also has some dysuria and vaginal bleeding Ultrasound of the abdomen and right upper quadrant ordered. Continue current management and antibiotic. Follow cultures Surgery follow-up Patient is malnourished and cachectic. Nutrition consulted Discharge plan when cleared by surgery Recheck CBC BMP in the morning History Interval history: Patient is seen and evaluated Patient chart and medications reviewed Patient complained of right upper quadrant abdominal pain 04/24 Also complained of dysuria and little vaginal bleeding Patient looks malnourished and cachectic. Nutritional consult Vital signs noted Hospitalist Physical - Constitutional Vitals: Temp Pulse Resp BP Pulse Ox 97.6 F 68 16 103/69 100 11/18/20 04:06 11/18/20 04:06 11/18/20 04:06 11/18/20 04:06 11/18/20 04:06 General appearance: Present: mild distress, well-nourished, disheveled, other (Malnourished) Results - Labs CBC & Chem 7: 11/17/20 07:51 11/17/20 07:51 Labs: Laboratory Last Values WBC 6.4 K/mm3 (4.5-11.0) 11/17/20 07:51 RBC 3.47 M/mm3 (3.65-5.03) L 11/17/20 07:51 Hgb 7.3 gm/dl (10.1-14.3) L 11/17/20 07:51 Hct 23.5 % (30.3-42.9) L 11/17/20 07:51 MCV 68 fl (79-97) L 11/17/20 07:51 MCH 21 pg (28-32) L 11/17/20 07:51 MCHC 31 % (30-34) 11/17/20 07:51 RDW 17.8 % (13.2-15.2) H 11/17/20 07:51 Plt Count 226 K/mm3 (140-440) 11/17/20 07:51 Lymph % (Auto) 18.2 % (13.4-35.0) 11/17/20 07:51 [place] % (Auto) 8.3 % (0.0-7.3) H 11/17/20 07:51 Eos % (Auto) 0.1 % (0.0-4.3) 11/17/20 07:51 Baso % (Auto) 0.4 % (0.0-1.8) 11/17/20 07:51 Lymph # (Auto) 1.2 K/mm3 (1.2-5.4) 11/17/20 07:51 [place] # (Auto) 0.5 K/mm3 (0.0-0.8) 11/17/20 07:51 Eos # (Auto) 0.0 K/mm3 (0.0-0.4) 11/17/20 07:51 Baso # (Auto) 0.0 K/mm3 (0.0-0.1) 11/17/20 07:51 Seg Neutrophils % 73.0 % (40.0-70.0) H 11/17/20 07:51 Seg Neutrophils # 4.7 K/mm3 (1.8-7.7) 11/17/20 07:51 Sodium 138 mmol/L (137-145) 11/17/20 07:51 Potassium 3.3 mmol/L (3.6-5.0) L 11/17/20 07:51 Chloride 101.8 mmol/L (98-107) 11/17/20 07:51 Carbon Dioxide 25 mmol/L (22-30) 11/17/20 07:51 Anion Gap 15 mmol/L 11/17/20 07:51 BUN 6 mg/dL (7-17) L 11/17/20 07:51 Creatinine 0.5 mg/dL (0.6-1.2) L 11/17/20 07:51 Estimated GFR > 60 ml/min 11/17/20 07:51 BUN/Creatinine Ratio 12 % 11/17/20 07:51 Glucose 89 mg/dL (65-100) 11/17/20 07:51 Hemoglobin A1c 5.4 % (4-6) 11/17/20 07:51 Lactic Acid 0.70 mmol/L (0.7-2.0) 11/16/20 12:22 Calcium 7.8 mg/dL (8.4-10.2) L 11/17/20 07:51 Iron 11 ug/dL (37-170) L 11/17/20 07:51 TIBC 231 mcg/dL (250-450) L 11/17/20 07:51 % Saturation 4.76 % 11/17/20 07:51 Transferrin 194 mg/dl (192-382) 11/17/20 07:51 Total Bilirubin 0.30 mg/dL (0.1-1.2) 11/17/20 07:51 Direct Bilirubin < 0.2 mg/dL (0-0.2) 11/16/20 12:22 Indirect Bilirubin 0.2 mg/dL 11/16/20 12:22 AST 11 units/L (5-40) 11/17/20 07:51 ALT < 5 units/L (7-56) L 11/17/20 07:51 Alkaline Phosphatase 45 units/L (35-129) 11/17/20 07:51 Total Protein 6.0 g/dL (6.3-8.2) L D 11/17/20 07:51 Albumin 3.1 g/dL (3.9-5) L 11/17/20 07:51 Albumin/Globulin Ratio 1.1 % 11/17/20 07:51 Lipase 8 units/L (13-60) L 11/16/20 12:22 Vitamin B12 370.4 pg/mL (211-911) 11/17/20 07:51 HCG, Qual Negative (Negative) 11/16/20 12:26 Urine Color Britany (Yellow) 11/16/20 12:55 Urine Turbidity Slightly-cloudy (Clear) 11/16/20 12:55 Urine pH 5.0 (5.0-7.0) 11/16/20 12:55 Ur Specific [place] 1.030 (1.003-1.030) 11/16/20 12:55 Urine Protein 100 mg/dl mg/dL (Negative) 11/16/20 12:55 Urine Glucose (UA) Neg mg/dL (Negative) 11/16/20 12:55 Urine Ketones Tr mg/dL (Negative) 11/16/20 12:55 Urine Blood Lg (Negative) 11/16/20 12:55 Urine Nitrite Neg (Negative) 11/16/20 12:55 Urine Bilirubin Neg (Negative) 11/16/20 12:55 Urine Urobilinogen 4.0 mg/dL (<2.0) 11/16/20 12:55 Ur Leukocyte Esterase Sm (Negative) 11/16/20 12:55 Urine WBC (Auto) 18.0 /HPF (0.0-6.0) H 11/16/20 12:55 Urine RBC (Auto) 108.0 /HPF (0.0-6.0) 11/16/20 12:55 U Epithel Cells (Auto) 6.0 /HPF (0-13.0) 11/16/20 12:55 Urine Mucus 3+ /HPF 11/16/20 12:55 Microbiology: Microbiology 11/16/20 12:22 Peripheral/Venous Blood Culture - Preliminary NO GROWTH AFTER 48 HOURS 11/16/20 12:22 Peripheral/Venous Blood Culture - Preliminary NO GROWTH AFTER 48 HOURS Henry/IV: Voiding Method Toilet Active Medications - Current Medications Current Medications: Generic Name Dose Route Start Last Admin Trade Name Freq PRN Reason Stop Dose Admin Acetaminophen 650 mg 11/16/20 17:40 11/17/20 22:54 Acetaminophen 325 Mg Tab PO 650 mg Q4H PRN Administration Pain MILD(1-3)/Fever >100.5/SEQUEIRA Famotidine 20 mg 11/17/20 10:00 11/18/20 09:27 Famotidine 20 Mg/2 Ml Inj IV 20 mg BID RG Administration Ferrous Sulfate 325 mg 11/17/20 22:00 11/18/20 09:27 Ferrous Sulfate 325 Mg Tab PO 325 mg BID RG Administration Heparin Sodium (Porcine) 5,000 unit 11/17/20 00:15 11/18/20 09:27 Heparin 5,000 Unit/1 Ml Vial SUB-Q 5,000 unit Q12HR RG Administration Hydromorphone HCl 0.5 mg 11/16/20 23:52 Hydromorphone 1 Mg/1 Ml Inj IV Q3H PRN Pain , Severe (7-10) Dextrose/Sodium Chloride 1,000 mls @ 75 mls/hr 11/16/20 23:45 11/18/20 05:11 D5ns IV 75 mls/hr DIRECT RG Administration Piperacillin Sod/Tazobactam Sod 4.5 gm in 100 mls @ 200 mls/hr 11/17/20 08:00 11/18/20 08:24 Zosyn/Ns 4.5gm/100ml IV 200 mls/hr Q8H RG Administration Metoclopramide HCl 10 mg 11/16/20 23:52 Metoclopramide 10 Mg/2 Ml Inj IV Q6H PRN Nausea And Vomiting Morphine Sulfate 2 mg 11/16/20 23:52 11/17/20 01:54 Morphine 2 Mg/1 Ml Inj IV 2 mg Q4H PRN Administration Pain, Moderate (4-6) Ondansetron HCl 4 mg 11/16/20 23:52 Ondansetron 4 Mg/2 Ml Inj IV Q3H PRN Nausea And Vomiting Sodium Chloride 10 ml 11/16/20 17:40 Sodium Chloride 0.9% 10 Ml Flush Syringe IV PRN PRN LINE FLUSH Sodium Chloride 10 ml 11/17/20 10:00 11/18/20 09:28 Sodium Chloride 0.9% 10 Ml Flush Syringe IV 10 ml BID RG Administration Sodium Chloride 10 ml 11/16/20 23:52 Sodium Chloride 0.9% 10 Ml Flush Syringe IV PRN PRN LINE FLUSH Nutrition/Malnutrition Assess - Dietary Evaluation Nutrition/Malnutrition Findings: Nutrition Notes Start: 11/17/20 10:53 Freq: Status: Active Protocol: Document 11/17/20 10:53 LP (Rec: 11/17/20 11:07 LP [email or web address]) Nutrition Notes Need for Assessment generated from: Low BMI Initial or Follow up Assessment Other Pertinent Diagnosis Acute appendicitis Current Diet NPO Labs/Tests 11/16/20 Na 136 K 3.4 Pertinent Medications D5NS at 75ml/hr Height 5 ft 6 in Weight 43.998 kg [place] Body Weight (kg) 59.09 BMI 15.6 Weight change and time frame 12% wt loss in 1 week UBW 50kg Weight Status Underweight Subjective/Other Information Screen for low BMI. Pt states not eating for 1 week. Pt states she had a light appetite and lost wt due to that but has always been small . Pt would like to have Ensure once diet is advanced. Burn Absent Trauma Absent GI Symptoms Other Food Allergy No Current % PO Negligible Minimum of two criteria Yes Energy Intake (severe) < or equal to 50% Estimated Energy Requirement > or equal to 5 days Interpretation of Weight Loss (severe) >5% in 1 month #2 Nutrition Diagnosis Inadequate oral intake Etiology decreased appetite As Evidenced by Signs and Symptoms Pt not eating well for 7 days and currently NPO #1 Nutrition Diagnosis Malnutrition Etiology abdominal pain/ decreased appetite As Evidenced by Signs and Symptoms Pt with 12% wt loss in 1 week, eating less than 50% of meals in 1 week, BMI 15.7 Is patient on ventilator? No Is Patient Ambulatory and/or Out of Bed Yes REE-([facility]-ambulatory/OOB) [ 1588.249 [id number]] Kcal/Kg value to use for calculation 40 Approximate Energy Requirements Using 1760 kcal/Kg Calculation Used for Recommendations Kcal/kg Additional Notes Protein needs 53-66g (1.2-1.5g /kg) Fluid needs are 1ml/kcal Nutrition Intervention Change Diet Order: Advance diet to Regular as feasible Add Supplement/Snack (indicate name/kcal Once diet is advanced Ensure /protein ) Enlive BID vanilla Provides kCal: 700 Provides Protein (gm) 40 Goal #1 Advance diet as feasible Anticipated Discharge Needs: Regular diet Follow-Up By: 11/19/20 Additional Comments Follow for diet advancement/ intakes - Malnutrition Assessment Minimum of two criteria: Yes - Attestation Statement I have reviewed and agreed w/ Malnutrition eval & tx plan: Yes
[2020-11-18 14:25] LABS: Basophils % (Auto) 0.1 % (0.0-1.8); Eosinophils % (Auto) 0.2 % (0.0-4.3); Hematocrit 22.5 % (30.3-42.9); Hemoglobin 6.9 gm/dl (10.1-14.3); Mean Corpuscular HGB Conc 31 % (30-34); Monocytes # (Auto) 0.4 K/mm3 (0.0-0.8); Monocytes % (Auto) 7.8 % (0.0-7.3); Platelet Count 287 K/mm3 (140-440); Red Blood Count 3.31 M/mm3 (3.65-5.03); Red Cell Distribution Width 18.4 % (13.2-15.2)
[2020-11-18 14:30] LABS: Mean Corpuscular Volume 68 fl (79-97)
[2020-11-18 14:45] LABS: Blood Urea Nitrogen 4 mg/dL (7-17); Calcium 7.9 mg/dL (8.4-10.2); Hemolysis Index 0
[2020-11-18 14:51] LABS: BUN/Creatinine Ratio 8
--- NOTE | 2020-11-18 22:23 | Ultrasound Report ---
ULTRASOUND ABDOMEN, COMPLETE INDICATION / CLINICAL INFORMATION: ruq pain. COMPARISON: CT abdomen and pelvis with contrast 11/16/2020 FINDINGS: PANCREAS: No significant abnormality. ABDOMINAL AORTA: No significant abnormality. IVC: No significant abnormality. LIVER: No significant abnormality. GALLBLADDER: No significant abnormality. BILE DUCTS: No significant abnormality. Common bile duct measures 1 mm. KIDNEYS: Right: No significant abnormality. Left: No significant abnormality. SPLEEN: No significant abnormality. FREE FLUID: None. ADDITIONAL FINDINGS: None. IMPRESSION: 1. No significant sonographic abnormality of the abdomen. Specifically no evidence of cholelithiasis or acute cholecystitis. Signer Name: Regulo Saavedra MD Signed: 11/18/2020 10:19 PM Workstation Name: [id number]
[2020-11-19 07:51] LABS: Basophils % (Auto) 0.5 % (0.0-1.8); Eosinophils % (Auto) 0.6 % (0.0-4.3); Hematocrit 22.7 % (30.3-42.9); Lymphocytes % (Auto) 38.4 % (13.4-35.0); Mean Corpuscular HGB Conc 31 % (30-34); Monocytes # (Auto) 0.5 K/mm3 (0.0-0.8); Monocytes % (Auto) 9.9 % (0.0-7.3); Platelet Count 324 K/mm3 (140-440); Red Blood Count 3.33 M/mm3 (3.65-5.03); Red Cell Distribution Width 18.1 % (13.2-15.2)
[2020-11-19 07:52] LABS: Mean Corpuscular Volume 68 fl (79-97)
[2020-11-19 08:04] LABS: Blood Urea Nitrogen 4 mg/dL (7-17); Calcium 7.8 mg/dL (8.4-10.2); Hemolysis Index 0
[2020-11-19 08:20] LABS: BUN/Creatinine Ratio 8
[2020-11-19] MEDS: PIPERACIL/TAZOBACTA 4.5/NS 100 4.5 GM/100 ML VIAL IV SCH (09:19)
[2020-11-19] MEDS: HEPARIN 5,000 UNIT/1 ML VIAL SUB-Q SCH (09:20)
[2020-11-19] MEDS: FAMOTIDINE 20 MG/2 ML INJ IV SCH (09:20)
[2020-11-19] MEDS: FERROUS SULFATE 325 MG TAB PO SCH (09:20)
[2020-11-19 13:07] VITALS: BP 109/76
--- NOTE | 2020-11-19 13:56 | Progress Note ---
Assessment and Plan - Patient Problems (1) Abdominal pain Current Visit: Yes Status: Acute Plan to address problem: 1) Abdominal pain is improved. Pt can be discharged. Would not discharge on any pain meds. Pt can f/u with her PCP. Diet can be advanced as tolerated. I will sign off. Subjective Date of service: 11/19/20 Patient Reports: Positive: no new complaints, pain is less, tolerating liquids well, afebrile Objective Vital Signs - 12hr 11/19/20 11/19/20 04:42 13:04 Temperature 98.4 F 98.2 F Pulse Rate 70 74 Respiratory 17 19 Rate Blood Pressure 97/64 109/76 O2 Sat by Pulse 100 100 Oximetry - Abdomen other (non-tender, no rebound or guarding; bowel sounds normal.) Hernia: none - Labs 11/19/20 07:19 11/19/20 07:19 Diabetes panel 11/18/20 11/19/20 Range/Units 13:57 07:19 Sodium 137 144 D (137-145) mmol/L Potassium 3.3 L 3.6 (3.6-5.0) mmol/L Chloride 105.0 111.2 H (98-107) mmol/L Carbon Dioxide 25 25 (22-30) mmol/L BUN 4 L 4 L (7-17) mg/dL Creatinine 0.5 L 0.5 L (0.6-1.2) mg/dL Glucose 102 H 87 (65-100) mg/dL Calcium 7.9 L 7.8 L (8.4-10.2) mg/dL Calcium panel 11/18/20 11/19/20 Range/Units 13:57 07:19 Calcium 7.9 L 7.8 L (8.4-10.2) mg/dL Pituitary panel 11/18/20 11/19/20 Range/Units 13:57 07:19 Sodium 137 144 D (137-145) mmol/L Potassium 3.3 L 3.6 (3.6-5.0) mmol/L Chloride 105.0 111.2 H (98-107) mmol/L Carbon Dioxide 25 25 (22-30) mmol/L BUN 4 L 4 L (7-17) mg/dL Creatinine 0.5 L 0.5 L (0.6-1.2) mg/dL Glucose 102 H 87 (65-100) mg/dL Calcium 7.9 L 7.8 L (8.4-10.2) mg/dL Adrenal panel 11/18/20 11/19/20 Range/Units 13:57 07:19 Sodium 137 144 D (137-145) mmol/L Potassium 3.3 L 3.6 (3.6-5.0) mmol/L Chloride 105.0 111.2 H (98-107) mmol/L Carbon Dioxide 25 25 (22-30) mmol/L BUN 4 L 4 L (7-17) mg/dL Creatinine 0.5 L 0.5 L (0.6-1.2) mg/dL Glucose 102 H 87 (65-100) mg/dL Calcium 7.9 L 7.8 L (8.4-10.2) mg/dL - Imaging US - abdomen: report reviewed
--- NOTE | 2020-11-19 14:34 | Discharge Summary ---
Providers - Providers Date of Admission: 11/16/20 17:40 Date of discharge: 11/19/20 Attending physician: TYRA APPLE MD 11/16/20 23:52 Consult to Physician [CONS] Routine Comment: Consulting Provider: HARVINDER WOODARD Physician Instructions: Reason For Exam: Possible appendicitis 11/18/20 13:11 Consult to Dietitian/Nutrition [CONS] Routine Physician Instructions: Reason For Exam: Reason for Consult: Malnutrition Primary care physician: PACKAGE SORTER Hospitalization Reason for admission: UTI. Iron deficiency anemia abdominal pain Condition: Good Hospital course: ssessment and Plan Assessment and plan: Assessment and Plan Assessment and plan: Possible acute appendicitis Clear liquid diet per surgery IV antibiotics, supportive care Surgery evaluation noted Closely monitor Possible UTI ; empiric antibiotics, follow cultures and sensitivities Continue IV and oral fluids ID consult if needed anemia/iron deficiency anemia Anemia work-up including iron studies and B12 and folic acid Probably secondary to menstrual. Closely monitor H&H transfuse as needed Iron supplements Hyponatremia improved Replacement therapy with IV normal saline Closely monitor electrolytes mild on IV fluids normal saline Severe malnutrition BMI 15.7 nutrition supplements, nutrition consult hypokalemia Supplemented Closely monitor electrolytes and correct as needed DVT prophylaxis On heparin and GI prophylaxis We will closely monitor the patient and adjust management as needed Follow surgery evaluation recommendations 11/17/2020; abdominal pain possible appendicitis Surgery evaluated, unlikely UTI, empiric antibiotics, follow cultures Closely monitor overnight And discharge home if stable and cleared by surgery 11/18/20 Patient is still complaining of right upper quadrant/abdominal pains 10/10 Patient also has some dysuria and vaginal bleeding Ultrasound of the abdomen and right upper quadrant ordered. Continue current management and antibiotic. Follow cultures Surgery follow-up Patient is malnourished and cachectic. Nutrition consulted Discharge plan when cleared by surgery Recheck CBC BMP in the morning 11/19/20 Patient is doing better still complain of mild pain in the abdomen. Dysuria is better. Complained mild vaginal bleeding. Ultrasound of the abdomen is normal Patient is seen and evaluated by surgery and cleared for discharge Discharge the patient with antibiotic, iron tablet Patient encouraged to eat properly Patient will follow up with primary care physician within a week Condition at the time of discharge is stable. History 20-year-old female with no significant past medical history comes in for right lower quadrant pain associated with nausea for the last 24 hours. Pain is about 10 on a scale of 1-10. Intermittent cramping in nature. Patient states that the pain radiates to the back. No dysuria. No abnormal vaginal discharge. Patient has history of tobacco use. Patient being admitted for high possibility of acute appendicitis. Interval history: Patient is seen and evaluated Patient chart and medications reviewed Patient complained of right upper quadrant abdominal pain 10/10 Also complained of dysuria and little vaginal bleeding Patient looks malnourished and cachectic. Nutritional consult Vital signs noted Disposition: - TO HOME OR SELFCARE Final Discharge Diagnosis (Prints w/discharge instructions): UTI. Iron deficiency anemia. Abdominal pain. Hyponatremia. Severe malnutrition BMI 15.7 Core Measure Documentation - Palliative Care Palliative Care/ Comfort Measures: Not Applicable - Core Measures Any of the following diagnoses?: none Exam - Constitutional Vitals: Temp Pulse Resp BP Pulse Ox 98.2 F 74 19 109/76 100 11/19/20 13:04 11/19/20 13:04 11/19/20 13:04 11/19/20 13:04 11/19/20 13:04 General appearance: Present: no acute distress, well-nourished - EENT Eyes: Present: PERRL ENT: hearing intact, clear oral mucosa - Neck Neck: Present: supple, normal ROM - Respiratory Respiratory effort: normal Respiratory: bilateral: CTA - Cardiovascular Heart Sounds: Present: S1 & S2. Absent: rub, click - Extremities Extremities: pulses symmetrical, No edema Peripheral Pulses: within normal limits - Abdominal General gastrointestinal: Present: soft, non-tender, non-distended, normal bowel sounds Female genitourinary: Present: normal - Integumentary Integumentary: Present: clear, warm, dry - Musculoskeletal Musculoskeletal: gait normal, strength equal bilaterally - Psychiatric Psychiatric: appropriate mood/affect, intact judgment & insight - Neurologic Neurologic: CNII-XII intact, moves all extremities Plan Activity: no restrictions Diet: regular Follow up with: PRIMARY CARE,MD [Primary Care Provider] - 3-5 Days Forms: STI Treatment and Prevention Prescriptions: Ferrous Sulfate [Feosol 325 MG tab] 325 mg PO BID 30 Days tablet cephALEXin [Keflex] 500 mg PO Q12HR 5 Days cap Famotidine [Pepcid] 20 mg PO BID 30 Days tablet
[2020-11-19] MEDS ORDERED: FAMOTIDINE 20 MG TAB PO SCH (22:00)
== END 2020-11-19 16:15 | disposition home or self-care (01) ==
LOC: ED 11:07 → 3A 17:40
PROVIDERS: ADMIT Internal Medicine; ATTEND Hospitalist
DX: R93.89 Abnormal findings on diagnostic imaging of other specified body structures (principal); K35.80 Unspecified acute appendicitis; D50.9 Iron deficiency anemia, unspecified; E87.1 Hypo-osmolality and hyponatremia; E87.6 Hypokalemia; N76.0 Acute vaginitis; E43 Unspecified severe protein-calorie malnutrition; Z68.1 Body mass index [BMI] 19.9 or less, adult; Z79.899 Other long term (current) drug therapy; Z98.890 Other specified postprocedural states
CPT/HCPCS: 36415; 71046; 74177; 76700; 80048; 80053; 80076; 81001; 82140; 82607; 82747; 83036; 83550; 83690; 84703; 85025; 87040; 87086; 87210; 87591; 96361; 96365; 96366; 96372; 96375; 96376; 99285; G0378; J1644; J2270; J2543; J7042; Q9967